=== PATIENT | female | born 1955 | race Caucasian/White ===

== ENCOUNTER 2016-11-20 13:53 | Day surgery (SDC) | payer OTHER ==
[2016-11-15 21:21] LABS: HEMOGLOBIN 11.7 g/dL (12.0-16.0)
[2016-11-15 21:42] LABS: BUN (BLOOD UREA NITROGEN) 8 MG/DL (6-23); CALCIUM, SERUM 8.9 MG/DL (8.5-10.4); CHLORIDE, SERUM 94 MMOL/L (96-112); CO2 (CARBON DIOXIDE) 23 MMOL/L (24-34); CREATININE 0.63 MG/DL (0.55-1.02); GFR AFRICAN AMERICAN 113 ML/MIN (>=60); GFR NON AFRICAN AMERICAN 97 ML/MIN (>=60); GLUCOSE, SERUM 96 MG/DL (60-99); POTASSIUM, SERUM 4.8 MMOL/L (3.5-5.3); SODIUM, SERUM 128 MMOL/L (135-148)
--- NOTE | ~2016-11-20 | OP ---
Record Of Operation [facility] [address] [place]. [address] NAME: LETICIA ANSARI : 57 STATUS : [facility] UNIT#: [id number] AGE: 61 ADM/REG DATE : 11/20/16 MR#: [id number] REPORT SERV DATE: 11/20/16 DICTATED BY: ANABELA DYKES DATE: 11/20/16 REPORT STATUS : Draft TRANSCRIBED BY: MODGianfranco DATE: 11/20/16 DATE OF PROCEDURE: 11/20/2016 PREOPERATIVE DIAGNOSES: 1. Basal cell carcinoma, nasal tip. 2. Suspicious area, right forehead. POSTOPERATIVE DIAGNOSES: 1. Basal cell carcinoma, nasal tip. 2. Suspicious area, right forehead. PROCEDURES: 1. Punch biopsy of the suspicious area on the right forehead. 2. Wide local excision of basal cell carcinoma on the nasal tip, with 14 mm closure. INDICATIONS: Leticia Ansari is a 61-year-old female who had a punch biopsy in the clinic a couple of weeks ago that was consistent with basal cell carcinoma. She is here today for wide local excision of this area right on the nasal tip, under MAC anesthesia. She was also noted to have an area on the right forehead close to the hairline that deserves a biopsy today. I counseled her about the risks, benefits, and alternatives of this procedure. The risks include, but are not limited to pain, bleeding, infection, and scarring. She voiced an understanding of those risks and signed a consent form. I quoted her a rate of recurrence of approximately 2% for the nasal tip lesion. DESCRIPTION OF PROCEDURE: Leticia was brought to the operating room and positioned on the table in a supine manner. MAC anesthesia was utilized. The area of the right forehead, punch biopsy, and the nasal tip were injected with 0.5% Marcaine with epinephrine and then painted with the Betadine paint. The right forehead area was biopsied with a 4 mm punch biopsy. This was closed with 5-0 plain suture in a running locking suture pattern. This was sent to Pathology for frozen section and the frozen section was benign. The nasal tip had an elliptical excision designed around the area of the previous biopsy and this was incised sharply with the 15 blade. After incising the skin edge, we used the scissors to undermine this and do the rest of the excision. This was marked with a stitch at 12 o'clock and then was sent to pathology. Dr. Briceno received the specimen and later informed us that this was negative for basal cell carcinoma at the margin. There was a small area of residual tumor, right in the center of the specimen. So, all the margins were free around the nasal tip excision. After excising the nasal tip lesion, we extensively undermined the skin, both superior and inferior and laterally to this. Hemostasis was obtained with the bipolar electrocautery. The 4-0 Vicryl undyed was utilized in an interrupted fashion in the subcutaneous layer and then we used 5-0 Prolene in both an interrupted and a running locking suture pattern at the skin level. This was cleaned up and no additional bleeding was identified. The wound was dressed with bacitracin. The patient was returned to anesthesia control and moved to the recovery room in good condition, under MAC anesthesia only. Record Of Operation [address] [address] NAME: LETICIA ANSARI Pari : 57 STATUS : [facility] PAT#: [id number] AGE: 61 ADM/REG DATE : 11/20/16 MR#: [id number] REPORT SERV DATE: 11/20/16 DICTATED BY: ANABELA DYKES DATE: 11/20/16 REPORT STATUS : Draft TRANSCRIBED BY: ZA DATE: 11/20/16 FINDINGS: 1. Right forehead biopsy site negative for tumor. 2. The excision of the nasal tip lesion showed a small residual basal cell carcinoma area in the center of it and the lateral and deep margins were negative. 3. Estimated blood loss minimal, about 3 mL. GAUDENCIO/ZA Anabela Dykes M.D. / [id number] CC: Sujatha Liu M.D.
[~2016-11-20 13:53] MED LIST: COZ25 PO; DIL4TAB PO; EFFEX75 PO; ESTRACE1 MG PO; FIBERCON PO; KLONO2 PO; LEVOTHYROXIN25 MCG PO; MAG6464 MG PO; MOBIC15 MG PO; NEUR600 PO; ORPHENADRINE100 MG PO; PROTONIX PO; SALAGEN5 MG PO; VITAMIN D1000 UNI1 PO; [UNRECOGNIZED DRUG - OTHER] V
== END 2016-11-20 18:50 | disposition home or self-care (01) ==
LOC: SDC 13:53
PROVIDERS: Otolaryngology
PROC: 0HB1XZZ Excision of Face Skin, External Approach (ICD-10-PCS; principal; 2016-11-20 15:00)
PROC: 0HB1XZX Excision of Face Skin, External Approach, Diagnostic (ICD-10-PCS; 2016-11-20 15:00)
DX: C44.311 Basal cell carcinoma of skin of nose (principal); L82.1 Other seborrheic keratosis; M19.90 Unspecified osteoarthritis, unspecified site; M79.7 Fibromyalgia; F32.9 Major depressive disorder, single episode, unspecified; G47.33 Obstructive sleep apnea (adult) (pediatric); I10 Essential (primary) hypertension; Z88.0 Allergy status to penicillin; Z79.899 Other long term (current) drug therapy; Z98.890 Other specified postprocedural states; Z82.49 Family history of ischemic heart disease and other diseases of the circulatory system; Z82.3 Family history of stroke; Z99.89 Dependence on other enabling machines and devices; Z90.710 Acquired absence of both cervix and uterus; Z98.41 Cataract extraction status, right eye; Z98.42 Cataract extraction status, left eye
CPT/HCPCS: 36415; 80048; 84295; 85014; 85018; 88305; 88331; A9270-GY; J0690; J2250; J2405; J2710; J3010